=== PATIENT | female | born 1985 | race Caucasian/White ===

== ENCOUNTER → 2018-11-20 14:36 | Outpatient (CLI) | payer BC, SELFPAY ==
[2018-11-20 16:01] LABS: Absolute Lymphocyte Count 1.26 X10^3/uL (0.83-4.51); Absolute Neutrophil Count 5.6 X10^3/uL (2.0-7.7); Basophil# 0.03 X10^3/uL; Basophil% 0.4 % (0-1); Eosinophil# 0.12 X10^3/uL; Eosinophils% 1.6 % (0-5); Hemoglobin 12.6 g/dL (12.0-15.0); Lymphocyte # 1.26 X10^3/ul (4.0); Mean Corp Hgb Conc 32.3 g/dL (32-36); Mean Corpuscular Hgb 29.5 pg (27.0-32.0); Mean Corpuscular Volume 91.3 fL (81-99); Mean Platelet Vol. 10.8 fl (6.2-12.0); Monocyte# 0.41 X10^3/uL; Monocyte% 5.5 % (0-10); NRBC Flagged by Analyzer 0 % (0-5); Neutrophil # 5.56 X10^3/uL (2.7-7.7); Neutrophil % 75.2 % (47-70); Platelet Count 261 K/mm3 (150-450); RBC Distribution Width CV 12.2 % (11.6-14.6); RBC Distribution Width SD 40.5 fl (35.1-43.9); Red Blood Count 4.27 M/mm3 (4.2-5.4); White Blood Count 7.4 K/mm3 (4.4-11.0)
[2018-11-20 16:19] LABS: AST(SGOT) 21 U/L (15-37); Alanine Aminotransfer ALT/SGPT 34 U/L (13-56); Albumin, Serum 3.7 g/dL (3.2-5.0); Alkaline Phosphatase 113 U/L (45-117); Anion Gap 12 (5-15); BUN 13 mg/dL (7-18); BUN/Creat Ratio 18.8 RATIO (10-20); Calcium,Total 9.2 mg/dL (8.5-10.1); Chloride 105 mmol/L (98-107); Cholesterol 214 mg/dL (200); Creatinine, Serum 0.69 mg/dL (0.55-1.02); EST Glomerular Filtration Rate 104 mL/min (>60); Est Glom Filt Rate - Afr Amer 126 mL/min (>60); Globulin 3.7 g/dL (2.2-4.2); Glucose 104 mg/dL (74-106); High Density Lipoprotein 74 mg/dL; Potassium 3.9 mmol/L (3.5-5.1); Protein, Total 7.4 g/dL (6.4-8.2); Sodium Level 142 mmol/L (136-145); Thyroid Stim Hormone (TSH) 1.13 uIU/mL (0.358-3.74); Triglycerides 313 mg/dL; Very Low Density Lipoprotein 63 mg/dL (5-40)
[2018-11-21 09:48] LABS: Hemoglobin A1c 5.4 % (4.2-6.3)
== END ==
PROVIDERS: Family Provider Family Medicine; PCP Family Medicine; Referring Provider Family Medicine; Visit Provider Family Medicine
DX: Z00.00 Encounter for general adult medical examination without abnormal findings (principal); R73.09 Other abnormal glucose
CPT/HCPCS: 36415; 80053; 80061; 83036; 84443; 85025

== ENCOUNTER → 2020-03-20 08:08 | Outpatient (CLI) | payer BC, SELFPAY ==
--- NOTE | 2020-03-20 | LES_PTH ---
PATIENT: INOCENTE RUIZ LOC: [facility]#:[id number] AGE/SX: 40/F ROOM: RE03/20/[address]: Dr. Daniel Spence MD : 1985 BED: DIS: SPEC #: [id number] RECD: 03/20/20 17:25 STATUS: GUNJAN RAMÓN #: [id number] GAIL: 03/20/20 00:[address]: Daniel Spence DEPT: SURGICAL PATHOLOGY RECD BY: Bairon Gutiérrez Tissues: A - Skin of back, NOS B - Skin of back, NOS Procedures: Surgery Specimen Level IV HEADER OPERATION: Shave biopsy PRE-OP DIAGNOSIS: L82.0 TISSUE SUBMITTED: A - Left back, B - Right back MICROSCOPIC DIAGNOSIS A. Skin lesion of left back, biopsy: Seborrheic keratosis. B. Skin lesion of right back, biopsy: Verrucoid keratosis with seborrheic keratosis-like features. AM:rg 03/24/2020 MICROSCOPIC DESCRIPTION Slides are reviewed. GROSS DESCRIPTION A - Received is one container labeled with the patient's name and not further designated. The specimen consists of a light watkins shave biopsy of skin measuring 1 x 0.6 x 0.2 cm. The specimen is inked, bisected and totally submitted in one cassette. B - Received is one container labeled with the patient's name and not further designated. The specimen consists of a light watkins shave biopsy of skin measuring 1 x 0.7 x 0.1 cm. The specimen is inked, serially sectioned and totally submitted in one cassette. / AM:casa 03/23/20 TC:5 CPT: 50518 x2
== END ==
PROVIDERS: PCP Family Medicine; Referring Provider Family Medicine; Visit Provider Family Medicine
DX: L82.0 Inflamed seborrheic keratosis (principal)
CPT/HCPCS: 88305

== ENCOUNTER → 2020-03-23 08:08 | Outpatient (CLI) | payer BC, SELFPAY | PROVIDERS: PCP Family Medicine; Visit Provider Family Medicine | DX: L82.0 Inflamed seborrheic keratosis (principal) ==

== ENCOUNTER → 2020-07-17 17:34 | Outpatient (CLI) | payer BC, SELFPAY ==
[2020-07-24 10:02] LABS: HPV Reflexed? NOT INDICATED
== END ==
PROVIDERS: PCP Family Medicine; Visit Provider Registered Nurse
DX: Z01.419 Encounter for gynecological examination (general) (routine) without abnormal findings (principal)
CPT/HCPCS: 88175; G0145

== ENCOUNTER 2023-06-01 05:55 | Emergency (ER) | payer BC, SELFPAY ==
[2023-06-01] VITALS (23 sets, daily range): BP systolic 142–169; BP diastolic 87–124; PULSE 103–133; RESP 12–23; TEMP 36.3–36.8; O2SAT 96–100; BMI 30.1
--- NOTE | 2023-06-01 06:00 | EKG12_ITS ---
Test Reason : CP Blood Pressure : / mmHG Vent. Rate : 129 BPM Atrial Rate : 129 BPM P-R Int : 158 ms QRS Dur : 070 ms QT Int : 290 ms P-R-T Axes : 048 005 268 degrees QTc Int : [address] CHANGES Abnormal ECG Confirmed by Carlito Curiel ([id number]), editor news SHAHRAM VARGAS ([id number]) on 06/02/2023 7:22:01 AM Referred By: PANTERA Confirmed By:Carlito Curiel
--- NOTE | 2023-06-01 06:00 | RAD_ITS ---
EXAM: XR CHEST, 1 VIEW CLINICAL INDICATION: chest pain TECHNIQUE: Frontal view of the chest. COMPARISON: No relevant prior studies available. FINDINGS: LUNGS AND PLEURAL SPACES: Unremarkable. No consolidation or edema. No pneumothorax. No effusion. HEART: Unremarkable. Cardiac silhouette not enlarged. MEDIASTINUM: Central airways and mediastinal contour are unremarkable. BONES/JOINTS: Unremarkable. No acute fracture. SOFT TISSUES: Unremarkable. RAD/Chest 1 View (Portable) IMPRESSION: No radiographic evidence of acute cardiopulmonary disease. Electronically Signed: Carlito Sullivan MD at 7:10 EDT ,
[2023-06-01] MEDS: Aspirin 81 MG TAB.CHEW 324 MG PO (06:14)
[2023-06-01 06:23] LABS: Absolute Lymphocyte Count 1.84 X10^3/uL (0.83-4.51); Absolute Neutrophil Count 6.9 X10^3/uL (2.0-7.7); Basophil# 0.04 X10^3/uL; Basophil% 0.4 % (0-1); Eosinophil# 0.12 X10^3/uL; Eosinophils% 1.3 % (0-5); Hematocrit 41.1 % (37-47); Hemoglobin 13.3 g/dL (12.0-15.0); Lymphocyte # 1.84 X10^3/ul (0.83-4.51); Lymphocyte % 19.6 % (19-41); Mean Corp Hgb Conc 32.4 g/dL (32-36); Mean Corpuscular Hgb 29.1 pg (27.0-32.0); Mean Corpuscular Volume 89.9 fL (81-99); Mean Platelet Vol. 10.2 fl (6.2-12.0); Monocyte# 0.44 X10^3/uL; Monocyte% 4.7 % (0-10); NRBC Flagged by Analyzer 0 % (0-5); Neutrophil # 6.91 X10^3/uL (2.7-7.7); Neutrophil % 73.6 % (47-70); Platelet Count 277 K/mm3 (150-450); RBC Distribution Width CV 12.7 % (11.6-14.6); RBC Distribution Width SD 41.3 fl (35.1-43.9); Red Blood Count 4.57 M/mm3 (4.2-5.4); White Blood Count 9.4 K/mm3 (4.4-11.0)
--- NOTE | 2023-06-01 06:32 | EDS_ITS ---
HPI History of Present Illness Chief Complaint: Chest Pain Narrative Narrative: 38-year-old female presenting with chest pain. She states she woke up with it at 4 AM. She describes it as sharp and retrosternal. She also describes it as pressure-like. She states she had this sensation in the past when she was and thought it was air trapping initially but it did not go away. Does not feel quite the same. Patient does not have any history of DVT/PE. No history of cancer in her. No recent travel or surgery. She has not been bedridden or mobilize. She is on oral control. Does not believe she is . She has not any fevers or chills or coughs. She states it does not feel like dyspepsia. She states she did have 2 white claws last night before bed but does not think that would contribute to it. PFSH PFSH Allergy/AdvReac Type Severity Reaction Status Date / Time sulfamethoxazole AdvReac Mild Diarrhea Verified 06/01/23 06:02 [From Bactrim] trimethoprim [From Bactrim] AdvReac Mild Diarrhea Verified 06/01/23 06:02 Surgical History (Updated 06/01/23 @ 05:59 by Aide Ralph) History of appendectomy Social History Smoking Status: Never smoker EXAM Physical Exam Const Vital Signs: 06/01/23 05:56 06/01/23 05:58 06/01/23 06:00 Temperature 98.2 F Temperature Source Temporal Pulse Rate 133 H Respiratory Rate 23 H Respiratory Effort Normal Blood Pressure 166/124 H Blood Pressure Mean 138 Pulse Ox 98 Oxygen Delivery Method Room Air Room Air 06/01/23 06:49 06/01/23 06:07 06/01/23 06:11 Temperature Temperature Source Pulse Rate 115 H 126 H 122 H Respiratory Rate 12 18 17 Respiratory Effort Blood Pressure 148/111 H 169/113 H Blood Pressure Mean 123 129 Pulse Ox 99 Oxygen Delivery Method Room Air 06/01/23 06:15 06/01/23 06:30 06/01/23 06:45 Temperature Temperature Source Pulse Rate 118 H 128 H 115 H Respiratory Rate 14 13 18 Respiratory Effort Blood Pressure 159/109 H 164/123 H 148/111 H Blood Pressure Mean 121 134 122 Pulse Ox 100 96 Oxygen Delivery Method 06/01/23 07:00 Temperature Temperature Source Pulse Rate 125 H Respiratory Rate 20 H Respiratory Effort Blood Pressure 154/110 H Blood Pressure Mean 122 Pulse Ox 97 Oxygen Delivery Method MDM MDM MDM Narrative Medical decision making narrative: Of admission presenting with chest pain which woke her up from sleep at about 4 AM. Differential includes ACS, dysrhythmia, A-fib, pneumonia, pneumothorax, PE. CBC was obtained to assess with blood cell count, hemoglobin, platelets. BMP to assess renal function, electrolytes, glucose. LFTs to assess liver enzymes and lipase to assess for pancreatitis as the patient had some white claws last night. High-sensitivity troponin will also be obtained. EKG on my interpretation is sinus tachycardia without evidence of ischemia. Chest x-ray my interpretation is no acute process. CBC and BMP within normal limits. LFTs are normal. Lipase is normal. Patient was given a GI cocktail to see if this would help with her symptoms and did not significantly change her symptoms. She was given Toradol as well as she does not want anything stronger. D-dimer was negative but the patient still significantly tachycardic in the 120s. Patient was given a liter normal saline. Through shared decision making we determined we would obtain a CTA to rule out PE or other abnormality given that she has significant tachycardia. Delta troponin is pending as well. Patient will be signed out to incoming ED physician for monitoring. Impression: 1. Chest pain 2. Tachycardia Lab Data Attestation: I reviewed the patient's lab results. Labs: Laboratory Results - last 24 hr 06/01/23 06:07 WBC 9.4 RBC 4.57 Hgb 13.3 Hct 41.1 MCV 89.9 MCH 29.1 MCHC 32.4 RDW Std Deviation 41.3 RDW Coeff of Jarred 12.7 Plt Count 277 MPV 10.2 Immature Gran % (Auto) 0.400 Neut % (Auto) 73.6 H Lymph % (Auto) 19.6 [place] % (Auto) 4.7 Eos % (Auto) 1.3 Baso % (Auto) 0.4 Absolute Neuts (auto) 6.9 Absolute Lymphs (auto) 1.84 Nucleated RBC % 0 D-Dimer Quant (PE/DVT) 0.36 Sodium 138 Potassium 3.6 Chloride 105 Carbon Dioxide 26.0 Anion Gap 7 BUN 11 Creatinine 0.64 Estim Creat Clear Calc 118.41 Est GFR (MDRD) Af Amer 135 Est GFR (MDRD) Non-Af 112 BUN/Creatinine Ratio 17.3 Glucose 117 H Calcium 9.3 Total Bilirubin 0.20 Direct Bilirubin 0.06 AST 19 ALT 36 Alkaline Phosphatase 86 Troponin I High Sens < 3 L Total Protein 7.6 Albumin 3.9 Globulin 3.7 Lipase 32 Radiography Diagnostic Testing: Clinical Impression(s) from Imaging Studies Chest X-Ray 06/01/23 06:00 IMPRESSION: No radiographic evidence of acute cardiopulmonary disease. Electronically Signed: Carlito Sullivan MD at 7:10 EDT , Chest CTA 06/01/23 07:01 IMPRESSION: No pulmonary embolism or dissection. Electronically Signed: Carlito Sullivan MD at 7:36 EDT , Discharge Plan Triage Chief Complaint: Chest Pain ED Provider: Mark Jennings Dx/Rx/DC Orders Clinical Impression: Tachycardia, Chest pain Instructions: ED Chest Pain, Noncardiac Primary Care Provider: Ivan Reed Referrals: Ivan Reed MD [Primary Care Provider] - Disposition Disposition: Home, Self Care
[2023-06-01 06:34] LABS: D-Dimer Quantitative (DVT/PE) 0.36 FEU/ug/m (0.27-0.49)
[2023-06-01] MEDS: Mag Hydrox/Al Hydrox/Simeth 30 ML UDC PO (06:46)
[2023-06-01 06:50] LABS: Anion Gap 7 (5-15); BUN 11 mg/dL (7-18); BUN/Creat Ratio 17.3 RATIO (10-20); Calcium,Total 9.3 mg/dL (8.5-10.1); Chloride 105 mmol/L (98-107); Creatinine, Serum 0.64 mg/dL (0.55-1.02); EST Glomerular Filtration Rate 112 mL/min (>60); Est Glom Filt Rate - Afr Amer 135 mL/min (>60); Estimated Creatinine Clearance 118.41 ml/min; Glucose 117 mg/dL (74-106); Potassium 3.6 mmol/L (3.5-5.1); Sodium Level 138 mmol/L (136-145); Troponin-I HS (w/2H Reflex) < 3 pg/mL (3.0-54.0)
[2023-06-01 06:54] LABS: AST(SGOT) 19 U/L (15-37); Alanine Aminotransfer ALT/SGPT 36 U/L (13-56); Albumin, Serum 3.9 g/dL (3.2-5.0); Alkaline Phosphatase 86 U/L (45-117); Bilirubin, Direct 0.06 mg/dL (0.00-0.30); Globulin 3.7 g/dL (2.2-4.2); Lipase 32 U/L (13-75); Protein, Total 7.6 g/dL (6.4-8.2)
--- NOTE | 2023-06-01 07:01 | CT_ITS ---
EXAM: CT ANGIOGRAPHY CHEST WITHOUT AND WITH INTRAVENOUS CONTRAST CLINICAL INDICATION: chest pain TECHNIQUE: Helically acquired angiography images were obtained of the chest without and with intravenous contrast. This CT exam was performed using one or more of the following dose reduction techniques: automated exposure control, adjustment of the mA and/or kV according to patient size, and/or use of iterative reconstruction technique. MIP reconstructed images were created and reviewed. CONTRAST: 100 cc of Isovue-370 IV. RADIATION DOSE: CTDIvol = 10.94 mGy, DLP = 410.82 mGy-cm COMPARISON: No relevant prior studies available. FINDINGS: PULMONARY ARTERIES: Unremarkable. Normal in caliber. No evidence of pulmonary embolism. AORTA: Unremarkable. Normal in caliber. No evidence of dissection. GREAT VESSELS OF AORTIC ARCH: Unremarkable. Normal in caliber. No evidence of dissection. LUNGS AND PLEURAL SPACES: Unremarkable. No mass. No consolidation or edema. No pleural effusion or thickening. No pneumothorax. HEART: Unremarkable. Heart size is normal. No pericardial effusion. No significant coronary artery calcifications. MEDIASTINUM: Small hiatal hernia. No mediastinal or hilar adenopathy. Esophagus is unremarkable. THYROID: Unremarkable. No thyroid lesions. BONES/JOINTS: Unremarkable. No suspicious lytic or blastic abnormality. CT/CTA Chest W/WO Contrast IMPRESSION: No pulmonary embolism or dissection. Electronically Signed: Carlito Sullivan MD at 7:36 EDT ,
[2023-06-01] MEDS: Ketorolac 15 MG/ML Vial IV (07:28)
[2023-06-01 08:14] LABS: Reflex Troponin-HS? (from REC) Y
[2023-06-01] MEDS: 0.9% Normal Saline (1000mL) 1,000 ML 999 ML IV (08:24)
[2023-06-01] MEDS: Metoprolol Tartrate 5 MG/5 ML Vial IV (08:38)
--- NOTE | 2023-06-01 08:40 | ECHOCS_ITS ---
Reason For Study: OTHER Procedure This was a 2D Doppler, Color Flow transthoracic echocardiogram. Exam performed portable in ED. Left Ventricle Normal LV size. Left ventricular systolic function is normal. The left ventricular ejection fraction is 60 %. No regional wall motion abnormalities noted. Right Ventricle Normal RV size. Normal systolic function. Atria Normal left atrium. Normal right atrium. Mitral Valve Normal mitral valve. Tricuspid Valve Normal tricuspid valve. Aortic Valve Trisinus/trileaflet aortic valve. Pulmonic Valve Normal pulmonic valve. Great Vessels Normal aortic root. The pulmonary artery is normal size. Inferior vena cava collapse with respiration. Pericardium/Pleural No pericardial effusion. MMode/2D Measurements & Calculations LVIDd: 4.4 cm IVSd: 0.71 cm Ao root diam: 3.2 cm LVIDs: 2.4 cm LVPWd: 0.98 cm FS: 44.4 % LAV(MOD-bp): 32.2 ml LVAd ap4: 28.5 cm2 SV(MOD-sp4): 48.7 ml LAV(MOD-bp) Indexed: 17.8 ml/m2 LVLd ap4: 8.2 cm LAV(MOD-sp2): 36.7 ml EDV(MOD-sp4): 83.0 ml LAV(MOD-sp4): 28.4 ml EDV(sp4-el): 84.2 ml LVAs ap4: 16.3 cm2 LVLs ap4: 6.9 cm ESV(MOD-sp4): 34.3 ml ESV(sp4-el): 32.6 ml EF(MOD-sp4): 58.7 % EF(sp4-el): 61.2 % SV(sp4-el): 51.5 ml LA A4 area: 12.7 cm2 LA dimension(2D): 3.0 cm RA A4 area: 8.0 cm2 TAPSE: 0.90 cm Time Measurements MV dec time: 0.04 sec Doppler Measurements & Calculations MV E max jayesh: 66.4 cm/sec Lat Peak E' Jayesh: 15.1 cm/sec Med Peak E' Jayesh: 9.6 cm/sec MV A max jayesh: 128.3 cm/sec E/E' lat: 4.4 E/E' med: 6.9 MV E/A: 0.52 MV V2 max: 110.9 cm/sec Ao V2 max: 140.8 cm/sec MV max P.9 mmHg MV dec slope: 1764 cm/sec2 Ao max P.9 mmHg MV V2 mean: 69.2 cm/sec Ao V2 mean: 96.5 cm/sec MV mean P.2 mmHg Ao mean P.3 mmHg MV V2 VTI: 19.8 cm Ao V2 VTI: 23.2 cm AV (velocity ratio): 0.99 LV V1 max: 131.0 cm/sec PA V2 max: 97.7 cm/sec LV V1 max P.9 mmHg PA V2 mean: 70.0 cm/sec LV V1 mean P.6 mmHg LV V1 mean: 88.8 cm/sec LV V1 VTI: 22.9 cm ECHO/Echo Complete W/ Contrast Interpretation Summary Normal LV size. Left ventricular systolic function is normal. No regional wall motion abnormalities noted. The left ventricular ejection fraction is 60 %. No pericardial effusion. Structurally normal valves. Ordering Physician: Mark Jennings Referring Physician: EDNA CANAS Performed By: Mounika Denise RCS
--- NOTE | 2023-06-01 08:53 | PCM.CONS.C ---
Assessment & Plan Assessment/Plan (1) Chest pain: QUALIFIERS: Chest pain type: unspecified Qualified Code(s): R07.9 - Chest pain, unspecified PLAN: The patient's chest symptoms seem consistent with a pleuritic etiology or pericarditis. They seem to be better in the seated position than in the recumbent position this started suddenly when she did have a viral syndrome approximately 14 days ago. The symptoms improved with IV Toradol. Her initial troponin was less than 3 the delta troponin is pending. CT angio ruled out aortic dissection or pulmonary embolus. (2) Tachycardia: PLAN: The patient is sinus tachycardia responsive to increasing anxiety when questions are asked her chest symptoms are discussed. However her blood pressure is also elevated in the 160/90 range and I reviewed her blood pressure she keeps at home which have been in the 130-140 systolic with heart rates in the 80 bpm range. This tachycardia is definitely needed and appears to have occurred with the onset of this chest discomfort. The tachycardia did respond to IV Lopressor dropping her heart rate from the 140s down to 108. (3) Hypertension: QUALIFIERS: Hypertension type: primary hypertension Qualified Code(s): I10 - Essential (primary) hypertension PLAN: The patient has noted as she is gaining weight that her blood pressure has increased. She has been monitoring this in her home environment but this 160/90 is markedly higher than she has been experiencing at home. She is on no home meds. PLAN: Plan 1. Will obtain a stat echo to rule out pericardial effusion and define the LV function. Preliminary report LV function is well-preserved there is trivial pericardial effusion with no evidence of tamponade. 2. Would recommend initiation of indomethacin and colchicine. Indomethacin 25 mg 3 times daily and colchicine 0.6 mg twice daily. Should plan on treating with indomethacin for 2 weeks and colchicine for 4 weeks. 3. Will follow-up with the patient in the next week in the office the [facility] HPI Consult Data Date of Consult: 06/01/23 HPI Narrative HPI Narrative: INOCENTE RUIZ, is a 38 F who presents with sudden onset of sharp chest discomfort that awoke her from sleep at 0400 hrs. patient also reported some shortness of breath. She denied any diaphoresis nausea or vomiting. She reports this felt like a similar situation she had after her child was born when she had air under her diaphragm. But this was much more intense. The patient reports that the symptoms are much worse when she is in the recumbent position and improves when sitting up. Patient was evaluated in the emergency department where initial troponin is single digits. A CTA showed no evidence of pulmonary emboli was read as negative there is also no evidence of dissection. Chest x-ray showed no obvious cardiopulmonary abnormalities. The patient was tachycardic with what appears to be a sinus tachycardia in the 120s beat per minute range that with discussions goes up in the 140 bpm range. Blood pressure is also hypertensive in the 160/90 range. The patient was given IV Lopressor after my initial exam. This brought her heart rate down in the 100 bpm range and her blood pressure down to 159/60. The patient reports weight gain over the last several years. She has been aerobically active she rides a bike 4 to 5 days a week and is noticed no drop-off in her exercise tolerance. She denies any history of thyroid disorder there is a family history and a cousin with thyroid disease. The patient does report a viral upper respiratory tract infection approximately 2 weeks ago. ESR and CRP are pending at this time. TSH is also pending. The patient is EKG is consistent with sinus tachycardia with nonspecific ST changes. PFSH Home Medications colchicine 0.6 mg tablet 0.6 mg PO BID #10 tabs 06/01/23 [Rx Last Taken Unknown] indomethacin 25 mg capsule 25 mg PO TID #21 caps 06/01/23 [Rx Last Taken Unknown] metoprolol tartrate 50 mg tablet 50 mg PO BID #28 tabs 06/01/23 [Rx Last Taken Unknown] Allergy/AdvReac Type Severity Reaction Status Date / Time sulfamethoxazole AdvReac Mild Diarrhea Verified 06/01/23 06:02 [From Bactrim] trimethoprim [From Bactrim] AdvReac Mild Diarrhea Verified 06/01/23 06:02 Family History other other (There is a history of thyroid disorder and a first cousin.) Surgical History History of appendectomy Social History Smoking Status: Never smoker ROS ROS Narrative The patient is resting in the 45 degree position she is mildly anxious appropriately so given the overall situation. Constitutional Constitutional: Reports as per HPI Eyes Eyes: Reports systems reviewed and no addt'l complaints, except as documented ENT HEENT: Reports as per HPI Cardiovascular Cardiovascular: Reports as per HPI Respiratory/Chest Respiratory/Chest: Reports as per HPI Gastrointestinal Gastrointestinal: Reports systems reviewed and no addt'l complaints, except as documented Genitourinary Genitourinary: Reports systems reviewed and no addt'l complaints, except as documented Musculoskeletal Musculoskeletal: Reports systems reviewed and no addt'l complaints, except as documented Integumentary Integumentary: Reports systems reviewed and no addt'l complaints, except as documented Neurologic Neurologic: Reports systems reviewed and no addt'l complaints, except as documented Psychiatric Psychiatric: Reports systems reviewed and no addt'l complaints, except as documented Endocrine Endocrinology: Reports systems reviewed and no addt'l complaints, except as documented Hematologic/Lymphatic Hematologic/Lymphatic: Reports systems reviewed and no addt'l complaints, except as documented Allergic/Immunologic Allergic/Immunologic: Reports systems reviewed and no addt'l complaints, except as documented Physical Exam Const alert and oriented x3 HEENT normocephalic Eyes EOMs intact bilaterally Neck no JVD Carotids: Negative for bruit Chest inspection of chest normal Resp normal respiratory effort and clear to auscultation bilaterally Cardio regular rhythm, S1 normal heart sound, S2 normal heart sound, no murmurs, no rub and no gallops Rate: tachycardic GI normal to inspection, nondistended, normoactive bowel sounds and soft to palpation Extremity no pedal edema Skin no rashes or lesions noted Neuro Neuro Narrative: Alert and oriented x 3 Psych mental status grossly normal Risk Stratification Risk Stratification Applicable: Yes Age >/= 65: No >/= 3 CAD Risk Factors (HTN, HLD, DM, family hx of CAD, or current smoker): No Aspirin Use in the Past 7 Days: No Severe Angina (>/= episodes in 24 hours): No EKG ST Changes >/= 0.5mm: Yes Positive Cardiac Marker: No GURMEET Risk Stratification Score: 1 GURMEET % Risk: 5% Risk Charges/Coding Visit Charges Inpatient E&M: 04299 Init Hosp L3 Objective Data Vital Signs: Vital Signs Temp Pulse Resp BP Pulse Ox O2 Del Method 98.2 F 108 H 18 159/89 H 98 Room Air 06/01/23 05:56 06/01/23 08:44 06/01/23 08:44 06/01/23 08:44 06/01/23 08:44 06/01/23 08:44 Oxygen Delivery Method Room Air Weight: 170 lb 3.15 oz Body Mass Index (BMI) 30.1 Lab / Micro Data Attestation: I reviewed the patient's lab results. 06/01/23 06:07 06/01/23 06:07 Labs: Laboratory Results - last 24 hr 06/01/23 06:07: WBC 9.4, RBC 4.57, Hgb 13.3, Hct 41.1, MCV 89.9, MCH 29.1, MCHC 32.4, RDW Std Deviation 41.3, RDW Coeff of Jarred 12.7, Plt Count 277, MPV 10.2, Immature Gran % (Auto) 0.400, Neut % (Auto) 73.6 H, Lymph % (Auto) 19.6, [place] % (Auto) 4.7, Eos % (Auto) 1.3, Baso % (Auto) 0.4, Absolute Neuts (auto) 6.9, Absolute Lymphs (auto) 1.84, Nucleated RBC % 0, D-Dimer Quant (PE/DVT) 0.36, Sodium 138, Potassium 3.6, Chloride 105, Carbon Dioxide 26.0, Anion Gap 7, BUN 11, Creatinine 0.64, Estim Creat Clear Calc 118.41, Est GFR (MDRD) Af Amer 135, Est GFR (MDRD) Non-Af 112, BUN/Creatinine Ratio 17.3, Glucose 117 H, Calcium 9.3, Total Bilirubin 0.20, Direct Bilirubin 0.06, AST 19, ALT 36, Alkaline Phosphatase 86, Troponin I High Sens < 3 L, Total Protein 7.6, Albumin 3.9, Globulin 3.7, Lipase 32 Rhythm Strip Rhythm Strip: Sinus Tach Rate: 140 Ectopy: None Cardiology Labs/Tests 06/01/23 06:07: WBC 9.4, RBC 4.57, Hgb 13.3, Hct 41.1, MCV 89.9, MCH 29.1, MCHC 32.4, Plt Count 277, MPV 10.2, Immature Gran % (Auto) 0.400, Neut % (Auto) 73.6 H, Lymph % (Auto) 19.6, [place] % (Auto) 4.7, Eos % (Auto) 1.3, Baso % (Auto) 0.4, Absolute Neuts (auto) 6.9, Nucleated RBC % 0, D-Dimer Quant (PE/DVT) 0.36, Sodium 138, Potassium 3.6, Chloride 105, Carbon Dioxide 26.0, Anion Gap 7, BUN 11, Creatinine 0.64, Est GFR (MDRD) Af Amer 135, Est GFR (MDRD) Non-Af 112, BUN/Creatinine Ratio 17.3, Glucose 117 H, Calcium 9.3, Total Bilirubin 0.20, Direct Bilirubin 0.06 Rhythm: EKG: ECHO: Stress Test: Cardiac Cath: PCI: CT Surgery: Holter monitor: EPS: PPM: CXR: Chest CT Scan: Radiography Diagnostic Testing: Radiology Impression Chest X-Ray 06/01/23 06:00 IMPRESSION: No radiographic evidence of acute cardiopulmonary disease. Electronically Signed: Carlito Sullivan MD at 7:10 EDT , Chest CTA 06/01/23 07:01 IMPRESSION: No pulmonary embolism or dissection. Electronically Signed: Carlito Sullivan MD at 7:36 EDT , EKG Initial EKG: Attestation: I personally reviewed and interpreted this EKG as follows: Interpretation: Sinus tachycardia with nonspecific ST changes possibly consistent with left ventricular hypertrophy.
[2023-06-01 08:56] LABS: Thyroid Stim Hormone (TSH) 1.89 uIU/mL (0.358-3.74); Troponin-I HS < 3 pg/mL (3.0-54.0)
[2023-06-01] MEDS: Indomethacin 25 MG Capsule PO (09:08)
[2023-06-01] MEDS: Colchicine 0.6 MG TABLET PO (09:08)
[2023-06-01 09:13] LABS: CRP 9.34 mg/L (0.0-3.0)
[2023-06-01 09:24] LABS: Erythrocyte Sedimentation Rate 17 mm/hr (0-30)
== END 2023-06-01 10:46 | disposition home or self-care (01) ==
PROVIDERS: Emergency Provider Student in an Organized Health Care Education/Training Program; PCP Family Medicine; Visit Provider Student in an Organized Health Care Education/Training Program
DX: R07.9 Chest pain, unspecified (principal); R00.0 Tachycardia, unspecified; I10 Essential (primary) hypertension; R06.02 Shortness of breath
CPT/HCPCS: 71045; 71275; 80048; 80076; 83690; 84443; 84484; 85025; 85379; 85652; 86140; 93005; 93306; 96361; 96374; 96375; 99284; J7030; Q9967; A4216; C8929